=== PATIENT | female | born 1930 | race Caucasian/White ===

== ENCOUNTER 2020-03-24 11:23 | Emergency (ER) | payer MEDICARE, OTHER ==
[~2020-03-24 11:23] MED LIST: ASPIRIN CHEWABL81 MG PO; BIOFREEZE89 ML TOP; CALCIUM WITH V1 EAC1 PO; FOLIC ACID1 MG PO; GLUCOPHAGE1000 MG PO; GLUCOTROL5 MG PO; HCTZ25 MG PO; LOPRESSOR50 MG PO; LOSARTAN-HCTZ1 EAC1 PO; NITROQUIK SL0.4 MG SL; NORCO 5-325 TA1 EACH PO; ONDANSETRON ODT4 MG PO/SL; PLAQUENIL200 MG PO; PRILOSEC20 MG PO; PROZAC20 MG PO; SYNTHROID150 MCG PO; ULORIC40 MG PO; VITAMIN E400 UNI1 XX; WELCHOL3.75 GM XX; ZOFRAN4 M1 PO
[2020-03-24 12:59] LABS: BASOPHIL 0.9 % (0-2); HCT 28.4 % (37.0-47.0); HGB 9.1 g/dl (12.5-16.0); LYMPHOCYTE 25.7 % (15-48); MCH 33.1 pg (25.0-31.0); MCV 103.3 fL (78.0-100.0); MONOCYTE 9.3 % (0-12); MPV 12.4 fL (6.0-9.5); NEUTROPHIL 58.7 % (41-80); NRBC 0; PLT 131 K/uL (150-400); RBC 2.75 M/uL (4.20-5.40); RDW 15.5 % (11.5-14.0); WBC 4.6 K/uL (4.0-10.5)
[2020-03-24 13:07] LABS: INR 1.02 (0.9-1.2); PROTHROMBIN TIME 12.7 SECONDS (11.4-13.6); PTT 23.5 SECONDS (22.2-34.7)
[2020-03-24 13:24] LABS: ALBUMIN 3.6 g/dL (3.4-5.0); BILIRUBIN - TOTAL 0.5 mg/dL (0.2-1.0); BUN/CREAT RATIO (CALC) 30.7 RATIO; C-REACTIVE PROTEIN 0.7 mg/dL (<=0.90); CREATININE 1.14 mg/dL (0.51-0.95); GLOBULIN (CALCULATION) 4.1 g/dL; POTASSIUM 4.3 mmol/L (3.5-5.1); TOTAL PROTEIN 7.7 g/dL (6.4-8.2)
[2020-03-24] MEDS ORDERED: TESSALON PERLE100 M1 PO (14:30)
[2020-03-24] MEDS ORDERED: MEDROL 4MG DOSEP4 MG PO (14:30)
== END 2020-03-24 15:05 | disposition home or self-care (01) ==
LOC: FER 11:23
PROVIDERS: Emergency Medicine
DX: U07.1 COVID-19 (principal); I48.91 Unspecified atrial fibrillation; J44.9 Chronic obstructive pulmonary disease, unspecified; E11.9 Type 2 diabetes mellitus without complications; Z87.891 Personal history of nicotine dependence
CPT/HCPCS: 36415; 71250; 80053; 82728; 83605; 83615; 83880; 84145; 84484; 85025; 85610; 85730; 86140; 93005

== ENCOUNTER 2021-07-25 20:57 | Emergency (ER) | payer MEDICARE, OTHER ==
[~2021-07-25 20:57] MED LIST changes: +MEDROL 4MG DOSEP4 MG PO; +TESSALON PERLE100 M1 PO
[2021-07-30] MEDS ORDERED: ACETAMINOPHEN-1 EAC1 PO (11:59)
== END 2021-07-26 00:25 | disposition home or self-care (01) ==
LOC: FER 20:57
DX: G89.29 Other chronic pain (principal); M51.36 Other intervertebral disc degeneration, lumbar region; C90.00 Multiple myeloma not having achieved remission; E11.9 Type 2 diabetes mellitus without complications; I10 Essential (primary) hypertension; J44.9 Chronic obstructive pulmonary disease, unspecified; Z88.0 Allergy status to penicillin; Z88.5 Allergy status to narcotic agent
CPT/HCPCS: 72128; 72131